=== PATIENT | female | born 1990 | race American Indian/Alaskan Native ===

== ENCOUNTER 2016-11-15 22:37 | Emergency (ER) | payer OTHER ==
[2016-11-15 22:54] VITALS: BP 140/89
[2016-11-15 23:38] LABS: Basophils % (Auto) 0.8 % (0.0-1.8); Eosinophils % (Auto) 0.9 % (0.0-4.3); Hematocrit 31.8 % (30.3-42.9); Hemoglobin 10.5 gm/dl (10.1-14.3); Mean Corpuscular HGB Conc 33 % (30-34); Mean Corpuscular Hemoglobin 28 pg (28-32); Mean Corpuscular Volume 85 fl (79-97); Platelet Count 371 K/mm3 (140-440); Red Blood Count 3.75 M/mm3 (3.65-5.03); Red Cell Distribution Width 15.9 % (13.2-15.2); White Blood Count 7.8 K/mm3 (4.5-11.0)
[2016-11-15 23:46] LABS: BUN/Creatinine Ratio 15.71; Blood Urea Nitrogen 11 mg/dL (7-17); Calcium 8.5 mg/dL (8.4-10.2); Carbon Dioxide 25 mmol/L (22-30); Chloride 101.4 mmol/L (98-107); Glucose 88 mg/dL (65-100); Potassium 3.8 mmol/L (3.6-5.0); Sodium 138 mmol/L (137-145)
[2016-11-15 23:53] LABS: Bilirubin,Urine NEG (Negative); Blood,Urine NEG (Negative); Ketones,Urine NEG (Negative); Leukocyte Esterase,Urine NEG (Negative); Mucus,Urine FEW /HPF; Nitrite,Urine NEG (Negative); Protein,Urine <15 mg/dL mg/dL (Negative); Urobilinogen,Urine < 2.0 mg/dL (<2.0); WBC,Urine < 1.0 /HPF (0.0-6.0)
[2016-11-15 23:56] LABS: Anion Gap 15 mmol/L
[2016-11-16] MEDS ORDERED: TYLENOL PO ONE (02:21)
== END 2016-11-16 03:55 | disposition left against medical advice (07) ==
LOC: ED 22:37
DX: R07.81 Pleurodynia (principal); Z53.21 Procedure and treatment not carried out due to patient leaving prior to being seen by health care provider
CPT/HCPCS: 36415; 80048; 81001; 81025; 84484; 85025; 93005; 93010

== ENCOUNTER 2017-04-10 21:34 | Emergency (ER) | payer OTHER ==
[2017-04-10 21:42] VITALS: BP 141/82
[2017-04-11] MEDS ORDERED: FLEXERIL PO ONE (00:15)
[2017-04-11] MEDS ORDERED: TORADOL IM ONE (00:16)
--- NOTE | 2017-04-11 00:18 | Emergency Department Report ---
HPI - General Chief Complaint: Extremity Injury, Lower Time Seen by Provider: 04/11/17 00:08 - HPI HPI: Patient is a 26-year-old female presents to ED complaining of right lower leg pain 1 day. Patient states she was getting out of her car earlier today when she accidentally slammed the door on her lower leg. She states shortly after that she started experiencing some lower leg cramp. PT feeling on anterior aspect of her lower leg. She reports ankle injury 2 years ago and states injury is aggravating her pain. She denies fevers/chills/nausea/vomiting/dizziness and shortness of breath as chest pain or any other problems ED Past Medical Hx - Past Medical History Previous Medical History?: Yes Hx Hypertension: Yes - Surgical History Past Surgical History?: Yes Additional Surgical History: uterine polyps - Social History Smoking Status: Never Smoker Substance Use Type: Alcohol, Prescribed - Medications Home Medications: Home Medications Medication Instructions Recorded Confirmed Last Taken Type HYDROcodone/APAP 5-325 [[place] 1 each PO Q6HR PRN #10 tablet 01/05/16 Unknown Rx 5/325] Cyclobenzaprine [Flexeril 10 MG 10 mg PO QHS #20 tablet 04/11/17 Unknown Rx TAB] Naproxen [Naprosyn] 500 mg PO BID #30 tablet 04/11/17 Unknown Rx ED Review of Systems ROS: Stated complaint: RT LEG INJURY Other details as noted in HPI Constitutional: denies: chills, fever Eyes: denies: eye pain, eye discharge, vision change ENT: denies: ear pain, throat pain Respiratory: denies: cough, shortness of breath, wheezing Cardiovascular: denies: chest pain, palpitations Endocrine: no symptoms reported Gastrointestinal: denies: abdominal pain, nausea, diarrhea Genitourinary: denies: urgency, dysuria, discharge Musculoskeletal: myalgia. denies: back pain, joint swelling, arthralgia Skin: denies: rash, lesions Neurological: denies: headache, weakness, paresthesias Psychiatric: denies: anxiety, depression Hematological/Lymphatic: denies: easy bleeding, easy bruising Physical Exam - Physical Exam Vital Signs: Vital Signs 04/10/17 21:38 Temperature 98.3 F Pulse Rate 68 Respiratory 18 Rate Blood Pressure 141/82 Blood Pressure 141/83 [Right] O2 Sat by Pulse 100 Oximetry Physical Exam: GENERAL: Alert and oriented x3, no apparent distress, Normal Gait, atraumatic. HEAD: Head is normocephalic and a-traumatic. NECK: Supple. Non edematous, No carotid bruits. No lymphadenopathy or thyromegaly. No C-spine tenderness LUNGS: Symetrical with respiration, No wheezing, no rales or crackles, CTAB. HEART: S1, S2 present, regular rate and rhythm without murmur, no rubs, no gallops. Non tender to palpation ischarge. EXTREMITIES/MUSCULOSKELETAL: No cyanosis, clubbing, rash, lesions or edema. Full ROM bilaterally. UE/LE Pulses 2+ bilaterally. LE and UE 5+ strength bilaterally, straight leg raise negative bilaterally. No calf tenderness. Homans sign negative. Right hickman tender to palpation. Ankle joints are intact knee joints are intact. Mild ecchymosis right lower hickman NEUROLOGIC: The patient is cooperative with no focal neurologic deficits. Cranial nerves II through XII are grossly intact. Normal speech. SKIN: Warm and dry, No lesions, No ulceration or induration present. ED Course Vital Signs 04/10/17 21:38 Temperature 98.3 F Pulse Rate 68 Respiratory 18 Rate Blood Pressure 141/82 Blood Pressure 141/83 [Right] O2 Sat by Pulse 100 Oximetry ED Medical Decision Making - Medical Decision Making 26-year-old female presents with nausea secondary to injury ED course: Patient received Toradol and Flexeril in ED. Discussed the patient to follow up with primary care physician. Discussed breast heat therapy application to hickman Vital signs are normal patient is in no acute distress. Stress test was normal, no fractures or dislocation normal sinus Discussed this finding this patient. Patient is alert and oriented 3 showed understanding of instructions given. Critical care attestation.: If time is entered above; I have spent that time in minutes in the direct care of this critically ill patient, excluding procedure time. ED Disposition Clinical Impression: Injury of right hickman Qualifiers: Encounter type: initial encounter Qualified Code(s): S89.91XA - Unspecified injury of right lower leg, initial encounter Disposition: TO HOME OR SELFCARE Is pt being admited?: No Does the pt Need Aspirin: No Condition: Stable Instructions: Musculoskeletal Pain (ED), Trigger Point Pain (ED) Prescriptions: Cyclobenzaprine [Flexeril 10 MG TAB] 10 mg PO QHS #20 tablet Naproxen [Naprosyn] 500 mg PO BID #30 tablet Referrals: PRIMARY CARE, [Primary Care Provider] - 3-5 Days [facility] [Outside] - 3-5 Days [facility] [Outside] - 3-5 Days Forms: Accompanied Note, Work/School Release Form Time of Disposition: 00:36
--- NOTE | 2017-04-11 00:21 | XRay Report ---
FINAL REPORT EXAM: XR TIBIA FIBULA 2V RT HISTORY: unable to bear weight; right leg pain COMPARISON: None available. FINDINGS: AP and lateral views of right tibia and fibula obtained. Bony structures are intact. Joint spaces are preserved. No acute fracture dislocation. IMPRESSION: No acute bony abnormality.
== END 2017-04-11 00:58 | disposition home or self-care (01) ==
LOC: ED 21:34
DX: S80.11XA Contusion of right lower leg, initial encounter (principal); I10 Essential (primary) hypertension; W22.8XXA Striking against or struck by other objects, initial encounter; Y93.89 Activity, other specified; Y92.89 Other specified places as the place of occurrence of the external cause; Y99.8 Other external cause status
CPT/HCPCS: 73590; 96372; 99283; J1885

== ENCOUNTER 2018-03-30 04:34 | Emergency (ER) | payer OTHER ==
[2018-03-30 05:58] LABS: Bilirubin,Urine NEG (Negative); Blood,Urine NEG (Negative); Color,Urine Straw (Yellow); Protein,Urine <15 mg/dL mg/dL (Negative); Urobilinogen,Urine < 2.0 mg/dL (<2.0); WBC,Urine < 1.0 /HPF (0.0-6.0)
[2018-03-30 06:02] LABS: Basophils % (Auto) 0.5 % (0.0-1.8); Eosinophils % (Auto) 0.4 % (0.0-4.3); Hematocrit 36.1 % (30.3-42.9); Hemoglobin 11.6 gm/dl (10.1-14.3); Lymphocytes % (Auto) 16.8 % (13.4-35.0); Mean Corpuscular HGB Conc 32 % (30-34); Mean Corpuscular Hemoglobin 26 pg (28-32); Mean Corpuscular Volume 81 fl (79-97); Monocytes # (Auto) 0.4 K/mm3 (0.0-0.8); Monocytes % (Auto) 6.6 % (0.0-7.3); Platelet Count 328 K/mm3 (140-440); Red Blood Count 4.46 M/mm3 (3.65-5.03); Red Cell Distribution Width 17.2 % (13.2-15.2)
[2018-03-30 06:11] LABS: HCG Qualitative,Urine Negative (Negative)
[2018-03-30 06:14] LABS: Alanine Aminotransferase 13 units/L (7-56); Albumin 4.6 g/dL (3.9-5); BUN/Creatinine Ratio 13; Blood Urea Nitrogen 12 mg/dL (7-17); Calcium 8.3 mg/dL (8.4-10.2); Hemolysis Index 0
[2018-03-30] MEDS ORDERED: DILAUDID IV ONE (08:27)
[2018-03-30] MEDS ORDERED: NACL 0.9% 1000 ML 2,000 ML IV ONE (08:27)
[2018-03-30] MEDS ORDERED: REGLAN IV ONE (08:28)
--- NOTE | 2018-03-30 08:28 | Emergency Department Report ---
ED General Adult HPI - General Chief complaint: Abdominal Pain Stated complaint: SYNCOPAL EPISODE Time Seen by Provider: 03/30/18 08:16 Source: patient, RN notes reviewed Mode of arrival: Stretcher Limitations: No Limitations - History of Present Illness Initial comments: This is a 27-year-old female, known to this provider previously. Her primary care doctor is Dr. Soria Patient presents to the ER with a complaint of left leg pain, intermittent sensation of her left leg during her, right upper quadrant abdominal pain that radiates down to the bilateral lower quadrants, syncope 1, lightheadedness, headache, nausea, shortness of breath. She also has a history of hypertension. She reports that she passed out at 3:00 this morning after urinating. The episode of loss of consciousness did not happen while urinating but afterwards. Her abdominal pain has no exacerbating or relieving factors. She denies DVT, pulmonary embolus risk factors. -: Gradual Location: head, abdomen, left, lower extremity Radiation: abdomen Severity scale (0 -10): 8 Quality: aching Consistency: constant Improves with: rest Worsens with: movement Associated Symptoms: headaches, loss of appetite, malaise, nausea/vomiting, shortness of breath, syncope, weakness. denies: confusion, chest pain, cough, diaphoresis, fever/chills, rash - Related Data Previous Rx's Medication Instructions Recorded Last Taken Type HYDROcodone/APAP 5-325 [[place] 1 each PO Q6HR PRN #10 tablet 01/05/16 Unknown Rx 5/325] Cyclobenzaprine [Flexeril 10 MG 10 mg PO QHS #20 tablet 04/11/17 Unknown Rx TAB] Naproxen [Naprosyn] 500 mg PO BID #30 tablet 04/11/17 Unknown Rx Acetaminophen [Tylenol Arthritis] 650 mg PO Q6HR PRN #30 tablet.er 03/30/18 Unknown Rx Famotidine [Pepcid] 20 mg PO BID #30 tablet 03/30/18 Unknown Rx Ondansetron [Zofran Odt] 4 mg PO Q8HR PRN #20 tab.rapdis 03/30/18 Unknown Rx Allergies Allergy/AdvReac Type Severity Reaction Status Date / Time No Known Allergies Allergy Verified 01/05/16 03:09 ED Review of Systems ROS: Stated complaint: SYNCOPAL EPISODE Other details as noted in HPI Constitutional: malaise. denies: fever Eyes: denies: vision change ENT: denies: epistaxis Respiratory: shortness of breath Cardiovascular: syncope. denies: chest pain Gastrointestinal: abdominal pain Genitourinary: denies: dysuria Musculoskeletal: arthralgia, myalgia Neurological: weakness Psychiatric: anxiety ED Past Medical Hx - Past Medical History Previous Medical History?: Yes Hx Hypertension: Yes - Surgical History Past Surgical History?: Yes Additional Surgical History: uterine polyps - Social History Smoking Status: Current Some Day Smoker - Medications Home Medications: Home Medications Medication Instructions Recorded Confirmed Last Taken Type HYDROcodone/APAP 5-325 [Michael 1 each PO Q6HR PRN #10 tablet 01/05/16 Unknown Rx 5/325] Cyclobenzaprine [Flexeril 10 MG 10 mg PO QHS #20 tablet 04/11/17 Unknown Rx TAB] Naproxen [Naprosyn] 500 mg PO BID #30 tablet 04/11/17 Unknown Rx Acetaminophen [Tylenol Arthritis] 650 mg PO Q6HR PRN #30 tablet.er 03/30/18 Unknown Rx Famotidine [Pepcid] 20 mg PO BID #30 tablet 03/30/18 Unknown Rx Ondansetron [Zofran Odt] 4 mg PO Q8HR PRN #20 tab.rapdis 03/30/18 Unknown Rx ED Physical Exam - General Limitations: No Limitations General appearance: alert, in distress, obese - Head Head exam: Present: atraumatic, normocephalic - Eye Eye exam: Present: normal appearance, PERRL, EOMI, other (visual acuity intact to finger counting, color perception, reading at a close distance). Absent: nystagmus - ENT ENT exam: Present: normal exam, normal orophraynx, mucous membranes moist, normal external ear exam - Neck Neck exam: Present: normal inspection, full ROM. Absent: tenderness, meningismus - Respiratory Respiratory exam: Present: normal lung sounds bilaterally. Absent: respiratory distress - Cardiovascular Cardiovascular Exam: Present: regular rate, normal rhythm, normal heart sounds. Absent: bradycardia, tachycardia, irregular rhythm, systolic murmur, diastolic murmur, rubs, gallop - GI/Abdominal GI/Abdominal exam: Present: soft, normal bowel sounds. Absent: distended, tenderness, guarding, rebound, rigid, pulsatile mass - Extremities Exam Extremities exam: Present: normal inspection, full ROM, tenderness (left medial thigh, left calf Tender.), normal capillary refill. Absent: pedal edema, joint swelling, calf tenderness - Back Exam Back exam: Present: normal inspection, full ROM. Absent: tenderness, CVA tenderness (R), paraspinal tenderness, vertebral tenderness - Neurological Exam Neurological exam: Present: alert, oriented X3, CN II-XII intact, other ( Extraocular movements intact. Tongue midline. No facial droop. Facial sensation intact to light touch in the V1, V2, V3 distribution bilaterally. 5 and 5 strength in 4 extremities.. Sensation is intact to light touch in 4 extremities.). Absent: motor sensory deficit - Psychiatric Psychiatric exam: Present: anxious - Skin Skin exam: Present: warm, dry, intact, normal color. Absent: rash ED Course Vital Signs 03/30/18 03/30/18 03/30/18 05:04 05:16 05:22 Temperature 98.1 F Pulse Rate 90 78 66 Respiratory 26 H 20 Rate Blood Pressure 140/82 140/82 Blood Pressure 140/82 [Right] O2 Sat by Pulse 100 98 Oximetry 03/30/18 03/30/18 03/30/18 05:29 05:30 05:46 Temperature Pulse Rate 88 80 Respiratory 18 18 15 Rate Blood Pressure 136/81 101/66 Blood Pressure [Right] O2 Sat by Pulse 100 100 Oximetry 03/30/18 03/30/18 03/30/18 06:00 06:16 06:30 Temperature Pulse Rate 110 H 84 81 Respiratory 16 7 L 19 Rate Blood Pressure 101/66 101/66 124/67 Blood Pressure [Right] O2 Sat by Pulse 89 100 100 Oximetry 03/30/18 03/30/18 03/30/18 06:46 07:00 07:16 Temperature Pulse Rate 83 89 84 Respiratory 18 15 16 Rate Blood Pressure 124/67 107/68 107/68 Blood Pressure [Right] O2 Sat by Pulse 100 100 100 Oximetry 03/30/18 03/30/18 03/30/18 07:30 07:46 08:00 Temperature Pulse Rate 85 92 H 82 Respiratory 19 17 16 Rate Blood Pressure 111/68 86/40 111/66 Blood Pressure [Right] O2 Sat by Pulse 100 100 100 Oximetry 03/30/18 03/30/18 03/30/18 08:16 08:30 08:46 Temperature Pulse Rate 87 90 88 Respiratory 15 16 17 Rate Blood Pressure 111/66 111/66 112/78 Blood Pressure [Right] O2 Sat by Pulse Oximetry 03/30/18 03/30/18 03/30/18 09:01 09:20 09:30 Temperature Pulse Rate 81 Respiratory 14 Rate Blood Pressure 155/60 109/55 Blood Pressure [Right] O2 Sat by Pulse 100 Oximetry 03/30/18 03/30/18 03/30/18 11:14 11:15 11:30 Temperature Pulse Rate 80 78 100 H Respiratory 23 24 25 H Rate Blood Pressure 108/62 108/62 113/67 Blood Pressure [Right] O2 Sat by Pulse 85 100 Oximetry 03/30/18 03/30/18 03/30/18 11:46 12:00 12:16 Temperature Pulse Rate 77 84 99 H Respiratory 23 19 18 Rate Blood Pressure 113/66 116/68 116/68 Blood Pressure [Right] O2 Sat by Pulse 100 100 100 Oximetry 03/30/18 03/30/18 03/30/18 12:30 12:46 13:00 Temperature Pulse Rate 77 94 H 84 Respiratory 19 16 14 Rate Blood Pressure 121/74 116/68 116/68 Blood Pressure [Right] O2 Sat by Pulse 100 Oximetry 03/30/18 03/30/18 13:16 13:30 Temperature Pulse Rate 103 H 92 H Respiratory 21 21 Rate Blood Pressure 129/60 129/60 Blood Pressure [Right] O2 Sat by Pulse 100 Oximetry - Reevaluation(s) Reevaluation #1: 03/30/18 10:37 Differential diagnosis, including but not limited to: Orthostasis, vagal event, structural cardiac disease, arrhythmia, intra-abdominal infection, pulmonary embolus, migraine headache, tension headache, cluster headache, DVT Assessment and plan: 27-year-old female with a primary complaint of syncope, multiple secondary complaints, including abdominal pain, left leg pain, headache , shortness of breath. No pulmonary embolus or DVT risk factors, low risk by well's criteria. Also found to be very orthostatic by numbers. GCS of 15, NIH score of 0, no abdominal tenderness. Patient's symptoms will be treated with IV fluids, nausea medicine, and with IV lidocaine for pain. CT scan of the brain, chest, abdomen, pelvis pending. Objective laboratory studies unremarkable, EKG also unremarkable. Reevaluation #2: 03/30/18 14:11 Repeat neurologic examination unremarkable and unchanged. CT scan of the brain is negative. CT scan of the abdomen and pelvis negative. CT scan of the chest grossly negative. Negative DVT study. No pulmonary embolus or DVT risk factors , low risk by well's criteria. Patient has not had an episode of syncope in the 10 hours that she has been in the emergency department. CT scan limitations of the tests are reviewed and appreciated, however based on the objective data, I think it is very unlikely at this point that the patient has a large symptomatically pulmonary embolus. The patient can follow up with outpatient cardiology for clearance to return to operate motor vehicles. ED Medical Decision Making - Lab Data Result diagrams: 03/30/18 05:41 03/30/18 05:41 Vital Signs 03/30/18 03/30/18 03/30/18 05:04 05:16 05:22 Temperature 98.1 F Pulse Rate 90 78 66 Respiratory 26 H 20 Rate Blood Pressure 140/82 140/82 Blood Pressure 140/82 [Right] O2 Sat by Pulse 100 98 Oximetry 03/30/18 03/30/18 03/30/18 05:29 05:30 05:46 Temperature Pulse Rate 88 80 Respiratory 18 18 15 Rate Blood Pressure 136/81 101/66 Blood Pressure [Right] O2 Sat by Pulse 100 100 Oximetry 03/30/18 03/30/18 03/30/18 06:00 06:16 06:30 Temperature Pulse Rate 110 H 84 81 Respiratory 16 7 L 19 Rate Blood Pressure 101/66 101/66 124/67 Blood Pressure [Right] O2 Sat by Pulse 89 100 100 Oximetry Lab Results 03/30/18 03/30/18 03/30/18 Range/Units 05:29 05:41 05:41 WBC 6.0 (4.5-11.0) K/mm3 RBC 4.46 (3.65-5.03) M/mm3 Hgb 11.6 (10.1-14.3) gm/dl Hct 36.1 (30.3-42.9) % MCV 81 (79-97) fl MCH 26 L (28-32) pg MCHC 32 (30-34) % RDW 17.2 H (13.2-15.2) % Plt Count 328 (140-440) K/mm3 Lymph % (Auto) 16.8 (13.4-35.0) % [place] % (Auto) 6.6 (0.0-7.3) % Eos % (Auto) 0.4 (0.0-4.3) % Baso % (Auto) 0.5 (0.0-1.8) % Lymph # 1.0 L (1.2-5.4) K/mm3 [place] # 0.4 (0.0-0.8) K/mm3 Eos # 0.0 (0.0-0.4) K/mm3 Baso # 0.0 (0.0-0.1) K/mm3 Seg Neutrophils % 75.7 H (40.0-70.0) % Seg Neutrophils # 4.6 (1.8-7.7) K/mm3 Sodium 136 L (137-145) mmol/L Potassium 4.1 (3.6-5.0) mmol/L Chloride 95.2 L (98-107) mmol/L Carbon Dioxide 29 (22-30) mmol/L Anion Gap 16 mmol/L BUN 12 (7-17) mg/dL Creatinine 0.9 (0.7-1.2) mg/dL Estimated GFR > 60 ml/min BUN/Creatinine Ratio 13 % Glucose 131 H (65-100) mg/dL Calcium 8.3 L (8.4-10.2) mg/dL Magnesium (1.7-2.3) mg/dL Total Bilirubin 0.20 (0.1-1.2) mg/dL AST 16 (5-40) units/L ALT 13 (7-56) units/L Alkaline Phosphatase 67 (35-129) units/L Troponin T (0.00-0.029) ng/mL Total Protein 7.6 (6.3-8.2) g/dL Albumin 4.6 (3.9-5) g/dL Albumin/Globulin Ratio 1.5 % TSH (0.270-4.200) mlU/mL Urine Color Straw (Yellow) Urine Turbidity Clear (Clear) Urine pH 6.0 (5.0-7.0) Ur Specific [place] 1.006 (1.003-1.030) Urine Protein <15 mg/dl (Negative) mg/dL Urine Glucose (UA) Neg (Negative) mg/dL Urine Ketones Neg (Negative) mg/dL Urine Blood Neg (Negative) Urine Nitrite Neg (Negative) Urine Bilirubin Neg (Negative) Urine Urobilinogen < 2.0 (<2.0) mg/dL Ur Leukocyte Esterase Neg (Negative) Urine WBC (Auto) < 1.0 (0.0-6.0) /HPF Urine RBC (Auto) 1.0 (0.0-6.0) /HPF Urine HCG, Qual Negative (Negative) 03/30/18 03/30/18 03/30/18 Range/Units 08:35 08:35 08:35 WBC (4.5-11.0) K/mm3 RBC (3.65-5.03) M/mm3 Hgb (10.1-14.3) gm/dl Hct (30.3-42.9) % MCV (79-97) fl MCH (28-32) pg MCHC (30-34) % RDW (13.2-15.2) % Plt Count (140-440) K/mm3 Lymph % (Auto) (13.4-35.0) % [place] % (Auto) (0.0-7.3) % Eos % (Auto) (0.0-4.3) % Baso % (Auto) (0.0-1.8) % Lymph # (1.2-5.4) K/mm3 [place] # (0.0-0.8) K/mm3 Eos # (0.0-0.4) K/mm3 Baso # (0.0-0.1) K/mm3 Seg Neutrophils % (40.0-70.0) % Seg Neutrophils # (1.8-7.7) K/mm3 Sodium (137-145) mmol/L Potassium (3.6-5.0) mmol/L Chloride (98-107) mmol/L Carbon Dioxide (22-30) mmol/L Anion Gap mmol/L BUN (7-17) mg/dL Creatinine (0.7-1.2) mg/dL Estimated GFR ml/min BUN/Creatinine Ratio % Glucose (65-100) mg/dL Calcium (8.4-10.2) mg/dL Magnesium 1.80 (1.7-2.3) mg/dL Total Bilirubin (0.1-1.2) mg/dL AST (5-40) units/L ALT (7-56) units/L Alkaline Phosphatase (35-129) units/L Troponin T < 0.010 (0.00-0.029) ng/mL Total Protein (6.3-8.2) g/dL Albumin (3.9-5) g/dL Albumin/Globulin Ratio % TSH 1.160 (0.270-4.200) mlU/mL Urine Color (Yellow) Urine Turbidity (Clear) Urine pH (5.0-7.0) Ur Specific [place] (1.003-1.030) Urine Protein (Negative) mg/dL Urine Glucose (UA) (Negative) mg/dL Urine Ketones (Negative) mg/dL Urine Blood (Negative) Urine Nitrite (Negative) Urine Bilirubin (Negative) Urine Urobilinogen (<2.0) mg/dL Ur Leukocyte Esterase (Negative) Urine WBC (Auto) (0.0-6.0) /HPF Urine RBC (Auto) (0.0-6.0) /HPF Urine HCG, Qual (Negative) - EKG Data -: EKG Interpreted by Tn - EKG Data 03/30/18 12:13 EKG #1 shows normal sinus, 90 beats minute, normal axis, normal intervals, nondistended, EKG #2 was unchanged, juvenile T-wave inversion noted in V2 V3. - Radiology Data Radiology results: pending, report reviewed, image reviewed [facility] : 1990 MedRec# [id number] 03/30/18 10:37 - Radiology Dept. Note by STEW LONDON [facility] Num: [id number] : 1990 Patient Age: 27 BLE VENOUS DUPLEX COMPLETED. VAS LAB PRELIMINARY REPORT; NO EVIDENCE OF DVT/SVT NOTED IN VESSELS/SEGMENTS EXAMINED, BLE. PHYSICIANS REPORT TO FOLLOW...(RSK) Initialized on 03/30/18 10:37 - END OF NOTE Critical care attestation.: If time is entered above; I have spent that time in minutes in the direct care of this critically ill patient, excluding procedure time. ED Disposition Clinical Impression: Syncope, Leg pain, Abdominal pain Disposition: DC-01 TO HOME OR SELFCARE Is pt being admited?: No Does the pt Need Aspirin: No Condition: Stable Instructions: Abdominal Pain (ED), Syncope (ED) Additional Instructions: Take pain medication, nausea medication as needed/directed. Do not drive or operate motor vehicles for the next 6 months. Follow up with either her primary care doctor or cardiology as listed within the next week for clearance or operate motor vehicles. Return to the ER right away with new pain, worsened pain, migration of pain, fevers, chills, lethargy, irritability, projectile vomiting, change in mental status, confusion, inability to tolerate liquid feeds. Referrals: PRIMARY CARE, [Primary Care Provider] - 3-5 Days [facility] [Provider Group] - 3-5 Days [facility] [Provider Group] - 3-5 Days [facility] [Provider Group] - 3-5 Days
[2018-03-30] MEDS ORDERED: XYLOCAINE CARDIAC IV ONE (09:44)
[2018-03-30] MEDS ORDERED: NACL 0.9% IV SCH (11:00)
[2018-03-30] MEDS ORDERED: XYLOCAINE CARDIAC IV SCH (11:00)
--- NOTE | 2018-03-30 11:15 | Cat Scan Report ---
CT HEAD WITHOUT CONTRAST INDICATION: Headache. Nausea and vomiting. COMPARISON: None similar. FINDINGS: Noncontrast head CT demonstrates normal, symmetric ventricles and sulci without acute or recent infarct, hemorrhage, mass effect or midline shift. No abnormal extra-axial fluid collections. Posterior fossa structures and basilar cisterns appear within normal limits. Symmetric eye globes. Aerated paranasal sinuses and mastoid air cells clear. Intact calvarium. Normal overlying scalp soft tissues. Few radiopaque dental material incidentally noted. CONCLUSION: No acute intracranial CT abnormality, as described. Thank you for the opportunity to participate in this patient's care.
--- NOTE | 2018-03-30 11:44 | Cat Scan Report ---
CTA CHEST CT ABDOMEN AND PELVIS WITH CONTRAST INDICATION: Dyspnea, syncope. Abdominal pain. Nausea, vomiting. COMPARISON: None similar. FINDINGS: Chest CTA as also abdomen and pelvis CT performed following intravenous administration of 100 cc of Omnipaque 300. Axial, sagittal, coronal and MIP reconstructions obtained. CHEST: Top normal heart size. No effusions or size significant adenopathy. No aortic aneurysm or dissection. Pulmonary arterial opacification suboptimal, though without gross central filling defects, to the extent assessed. Unremarkable thyroid. Clear lungs. Mild nonspecific distal esophageal wall prominence/thickening, not excluded for gastroesophageal reflux and/or hiatal hernia, amongst others. Right hemidiaphragm approximately 2 cm higher than the left. Inspiration suboptimal. ABDOMEN: Liver, spleen, gallbladder, pancreas, adrenals, aorta, IVC and kidneys within normal limits. No ascites or size significant adenopathy. Nonopacified GI tract evaluation limited, though grossly nonobstructive. A normal retrocecal appendix. Usual colonic stool. Tiny fat containing umbilical hernia. PELVIS: Uterus, adnexa/ovaries and the urinary bladder grossly within normal CT appearance. Approximately 2 cm right ovarian follicular cyst may be present. Rectosigmoid stool. No free fluid or significant adenopathy. Slight lower thoracic spine degenerative spurring. CONCLUSION: 1. Suboptimal pulmonary arterial opacification and assessment for pulmonary embolism, as described. 2. No other acute CT abnormality with few incidental findings, as above. Thank you for the opportunity to participate in this patient's care.
[2018-03-30] MEDS ORDERED: TORADOL IV ONE (12:14)
[2018-03-30 13:50] VITALS: BP 129/60
[2018-03-30 23:21] LABS: Amphetamine Screen,Urine PRESUMPTIVE NEGATIVE; Benzodiazepines Screen,Urine PRESUMPTIVE NEGATIVE; Cannabinoid Screen,Urine PRESUMPTIVE NEGATIVE; Cocaine Screen,Urine PRESUMPTIVE NEGATIVE; Methadone Screen,Urine PRESUMPTIVE NEGATIVE; Opiate Screen,Urine PRESUMPTIVE NEGATIVE
== END 2018-03-30 16:10 | disposition home or self-care (01) ==
LOC: ED 04:34
DX: R55 Syncope and collapse (principal); M79.605 Pain in left leg; R51 Headache; R10.9 Unspecified abdominal pain; R06.02 Shortness of breath; R11.2 Nausea with vomiting, unspecified; I10 Essential (primary) hypertension; F17.200 Nicotine dependence, unspecified, uncomplicated
CPT/HCPCS: 36415; 70450; 71275; 74177; 80053; 80307; 81001; 81025; 83735; 84443; 84484; 85025; 93005; 93010; 93970; 96361; 96374; 96375; 99285; J1885; J2001; J2765; J7030; Q9967; J1170

== ENCOUNTER 2018-04-10 16:44 | Outpatient (CLI) | payer OTHER ==
--- NOTE | 2018-04-11 07:30 | Magnetic Resonance Report ---
MR LOWER EXTREMITY NON-JOINT LEFT WITHOUT CONTRAST History: Pain in leg. Technique: Multisequence, multiplanar MRI without contrast was performed from the left knee to the left ankle. Comparison: None. Findings: There is mild nonspecific subcutaneous edema in the posterior subcutaneous tissues. No evidence for mass or fluid collection on noncontrast MR. There is normal bone marrow signal in the visualized tibia and fibula. No evidence for fracture, bone lesion or periostitis. The musculotendinous structures are unremarkable. IMPRESSION: Nonspecific subcutaneous edema in the posterior soft tissues which could represent a cellulitis or traumatic injury.
== END 2018-04-10 16:45 | disposition home or self-care (01) ==
LOC: MRI 16:44
PROVIDERS: ATTEND Podiatrist Foot & Ankle Surgery
DX: M79.605 Pain in left leg (principal); R60.0 Localized edema; D49.2 Neoplasm of unspecified behavior of bone, soft tissue, and skin; F17.210 Nicotine dependence, cigarettes, uncomplicated; I10 Essential (primary) hypertension

== ENCOUNTER 2018-07-09 09:27 | Emergency (ER) | payer OTHER ==
--- NOTE | 2018-07-09 10:13 | Emergency Department Report ---
- General Chief complaint: Weakness Stated complaint: HIGH B/P Time Seen by Provider: 07/09/18 10:07 Source: patient Mode of arrival: Ambulatory Limitations: No Limitations - History of Present Illness Initial comments: Ms. Osorio is 28 yo female who just feels "under the weather". Fatigue since last night. Denies pain. Hx of asthma. Complaint: generalized weakness -: Gradual, Last night Location: generalized Severity: mild Improves with: none Worsens with: none - Related Data Previous Rx's Medication Instructions Recorded Last Taken Type HYDROcodone/APAP 5-325 [[place] 1 each PO Q6HR PRN #10 tablet 01/05/16 Unknown Rx 5/325] Cyclobenzaprine [Flexeril 10 MG 10 mg PO QHS #20 tablet 04/11/17 Unknown Rx TAB] Naproxen [Naprosyn] 500 mg PO BID #30 tablet 04/11/17 Unknown Rx Acetaminophen [Tylenol Arthritis] 650 mg PO Q6HR PRN #30 tablet.er 03/30/18 Unknown Rx Famotidine [Pepcid] 20 mg PO BID #30 tablet 03/30/18 Unknown Rx Ondansetron [Zofran Odt] 4 mg PO Q8HR PRN #20 tab.rapdis 03/30/18 Unknown Rx Allergies Allergy/AdvReac Type Severity Reaction Status Date / Time No Known Allergies Allergy Verified 01/05/16 03:09 ED Review of Systems ROS: Stated complaint: HIGH B/P Other details as noted in HPI Comment: All other systems reviewed and negative Constitutional: malaise Respiratory: denies: cough Cardiovascular: denies: chest pain Neurological: headache (mild nondescript headache) ED Past Medical Hx - Past Medical History Hx Hypertension: No Hx Asthma: Yes - Surgical History Past Surgical History?: Yes Additional Surgical History: uterine polyps - Social History Smoking Status: Never Smoker Substance Use Type: None - Medications Home Medications: Home Medications Medication Instructions Recorded Confirmed Last Taken Type HYDROcodone/APAP 5-325 [[place] 1 each PO Q6HR PRN #10 tablet 01/05/16 Unknown Rx 5/325] Cyclobenzaprine [Flexeril 10 MG 10 mg PO QHS #20 tablet 04/11/17 Unknown Rx TAB] Naproxen [Naprosyn] 500 mg PO BID #30 tablet 04/11/17 Unknown Rx Acetaminophen [Tylenol Arthritis] 650 mg PO Q6HR PRN #30 tablet.er 03/30/18 Unknown Rx Famotidine [Pepcid] 20 mg PO BID #30 tablet 03/30/18 Unknown Rx Ondansetron [Zofran Odt] 4 mg PO Q8HR PRN #20 tab.rapdis 03/30/18 Unknown Rx ED Physical Exam - General Limitations: No Limitations General appearance: alert, in no apparent distress - Head Head exam: Present: atraumatic, normocephalic - Eye Eye exam: Present: normal appearance - ENT ENT exam: Present: mucous membranes moist - Neck Neck exam: Present: normal inspection. Absent: tenderness, meningismus - Respiratory Respiratory exam: Present: normal lung sounds bilaterally. Absent: respiratory distress, wheezes, rales, rhonchi - Cardiovascular Cardiovascular Exam: Present: regular rate, normal rhythm, normal heart sounds. Absent: systolic murmur, diastolic murmur, rubs, gallop - GI/Abdominal GI/Abdominal exam: Present: soft, normal bowel sounds. Absent: distended, tenderness, guarding, rebound - Extremities Exam Extremities exam: Present: normal inspection - Back Exam Back exam: Present: normal inspection - Neurological Exam Neurological exam: Present: alert, oriented X3 - Psychiatric Psychiatric exam: Present: normal affect, normal mood - Skin Skin exam: Present: warm, dry, intact, normal color. Absent: rash ED Course Vital Signs 07/09/18 09:39 Temperature 98.0 F Pulse Rate 91 H Respiratory 16 Rate Blood Pressure 133/82 O2 Sat by Pulse 100 Oximetry ED Medical Decision Making - Medical Decision Making Dina is a 28 yo female who feels "under the weather". Suspect fatigue vs early viral syndrome. Given return precautions and supportive care instructions. dc'd home Critical care attestation.: If time is entered above; I have spent that time in minutes in the direct care of this critically ill patient, excluding procedure time. ED Disposition Clinical Impression: Fatigue, Generalized weakness Disposition: DC-01 TO HOME OR SELFCARE Is pt being admited?: No Does the pt Need Aspirin: No Condition: Stable Instructions: Weakness (ED) Forms: Work/School Release Form(ED)
[2018-07-09 10:16] LABS: HCG Qualitative,Urine Negative (Negative)
[2018-07-09 10:19] LABS: Bilirubin,Urine NEG (Negative); Blood,Urine NEG (Negative); Color,Urine Yellow (Yellow); Mucus,Urine FEW /HPF; Protein,Urine <15 mg/dL mg/dL (Negative); Urobilinogen,Urine < 2.0 mg/dL (<2.0)
[2018-07-09 11:12] VITALS: BP 141/90
== END 2018-07-09 11:11 | disposition home or self-care (01) ==
LOC: ED 09:27
DX: R53.83 Other fatigue (principal); R53.1 Weakness; J45.909 Unspecified asthma, uncomplicated
CPT/HCPCS: 81001; 81025; 99283

== ENCOUNTER 2019-07-17 07:03 | Emergency (ER) | payer OTHER ==
[2019-07-17 07:24] VITALS: BP 154/96
--- NOTE | 2019-07-17 08:07 | Emergency Department Report ---
Vomiting/Diarrhea - HPI Chief Complaint: Nausea/Vomiting/Diarrhea Stated Complaint: HEADACHE, VOMITING Time Seen by Provider: 07/17/19 07:46 Duration: Today Severity: mild Nausea/Vomiting Severity: Mild Diarrhea Severity: Mild Pain Severity: None Symptoms: Yes Able to Tolerate Fluids, No Watery Diarrhea, No Bloody diarrhea, No Fever, No Recent Unusual Foods, No Recent Untreated Water, No Recent use of Antibiotics, No Family w/ Similar Symptoms, No Contacts w/ Similar Symptoms, No Rash, No Hematuria, No Recent URI Symptoms Other History: 29 yo AA female comes to ER with concern that she is . LMP < 1 m ago. Pt has breast pain and nausea. ED Review of Systems ROS: Stated complaint: HEADACHE, VOMITING Other details as noted in HPI Comment: All other systems reviewed and negative ED Past Medical Hx - Past Medical History Hx Hypertension: No Hx Asthma: Yes - Surgical History Past Surgical History?: Yes Additional Surgical History: uterine polyps - Family History Family history: no significant - Social History Smoking Status: Never Smoker - Medications Home Medications: Home Medications Medication Instructions Recorded Confirmed Last Taken Type Ondansetron [Zofran Odt] 4 mg PO Q8HR PRN #10 tab.rapdis 07/17/19 Unknown Rx Vomiting Diarrhea Exam - Exam General: Vital signs noted. No distress. Alert and acting appropriately. HEENT: Yes Moist Mucous Membranes, No Pharyngeal Erythema, No Pharyngeal Exudates Neck: No Adenopathy Lungs: Yes Clear Lung Sounds, Yes Good Air Exchange Heart exam: Regular: Yes Abdomen: Tenderness: No, Peritoneal Signs: No, Distention: No, Hyperactive Bowel sounds: No Skin exam: Rash: No, Edema: No Neurologic: Alert and oriented, no deficits. Musculoskeletal: Unremarkable. ED Course Vital Signs 07/17/19 07:21 Temperature 98.7 F Pulse Rate 88 Respiratory 12 Rate Blood Pressure 154/96 [Right] O2 Sat by Pulse 100 Oximetry ED Medical Decision Making - Lab Data Result diagrams: 07/17/19 08:02 07/17/19 08:02 - Medical Decision Making Lab Results 07/17/19 07/17/19 07/17/19 Range/Units 08:02 08:02 08:10 WBC 6.0 (4.5-11.0) K/mm3 RBC 4.34 (3.65-5.03) M/mm3 Hgb 11.5 (10.1-14.3) gm/dl Hct 35.6 (30.3-42.9) % MCV 82 (79-97) fl MCH 26 L (28-32) pg MCHC 32 (30-34) % RDW 18.9 H (13.2-15.2) % Plt Count 361 (140-440) K/mm3 Lymph % (Auto) 29.4 (13.4-35.0) % [place] % (Auto) 6.7 (0.0-7.3) % Eos % (Auto) 0.7 (0.0-4.3) % Baso % (Auto) 0.6 (0.0-1.8) % Lymph # 1.8 (1.2-5.4) K/mm3 [place] # 0.4 (0.0-0.8) K/mm3 Eos # 0.0 (0.0-0.4) K/mm3 Baso # 0.0 (0.0-0.1) K/mm3 Seg Neutrophils % 62.6 (40.0-70.0) % Seg Neutrophils # 3.8 (1.8-7.7) K/mm3 Sodium 135 L (137-145) mmol/L Potassium 4.4 (3.6-5.0) mmol/L Chloride 99.9 (98-107) mmol/L Carbon Dioxide 23 (22-30) mmol/L Anion Gap 17 mmol/L BUN 8 (7-17) mg/dL Creatinine 0.7 (0.7-1.2) mg/dL Estimated GFR > 60 ml/min BUN/Creatinine Ratio 11 % Glucose 111 H (65-100) mg/dL Calcium 8.6 (8.4-10.2) mg/dL Total Bilirubin < 0.20 (0.1-1.2) mg/dL AST 15 (5-40) units/L ALT 13 (7-56) units/L Alkaline Phosphatase 69 (35-129) units/L Total Protein 7.2 (6.3-8.2) g/dL Albumin 3.9 (3.9-5) g/dL Albumin/Globulin Ratio 1.2 % Lipase 33 (13-60) units/L Urine Color (Yellow) Urine Turbidity (Clear) Urine pH (5.0-7.0) Ur Specific [place] (1.003-1.030) Urine Protein (Negative) mg/dL Urine Glucose (UA) (Negative) mg/dL Urine Ketones (Negative) mg/dL Urine Blood (Negative) Urine Nitrite (Negative) Urine Bilirubin (Negative) Urine Urobilinogen (<2.0) mg/dL Ur Leukocyte Esterase (Negative) Urine WBC (Auto) (0.0-6.0) /HPF Urine RBC (Auto) (0.0-6.0) /HPF U Epithel Cells (Auto) (0-13.0) /HPF Urine Bacteria (Auto) (Negative) /HPF Urine Mucus /HPF Urine HCG, Qual (Negative) 07/17/19 Range/Units 08:29 WBC (4.5-11.0) K/mm3 RBC (3.65-5.03) M/mm3 Hgb (10.1-14.3) gm/dl Hct (30.3-42.9) % MCV (79-97) fl MCH (28-32) pg MCHC (30-34) % RDW (13.2-15.2) % Plt Count (140-440) K/mm3 Lymph % (Auto) (13.4-35.0) % [place] % (Auto) (0.0-7.3) % Eos % (Auto) (0.0-4.3) % Baso % (Auto) (0.0-1.8) % Lymph # (1.2-5.4) K/mm3 [place] # (0.0-0.8) K/mm3 Eos # (0.0-0.4) K/mm3 Baso # (0.0-0.1) K/mm3 Seg Neutrophils % (40.0-70.0) % Seg Neutrophils # (1.8-7.7) K/mm3 Sodium (137-145) mmol/L Potassium (3.6-5.0) mmol/L Chloride (98-107) mmol/L Carbon Dioxide (22-30) mmol/L Anion Gap mmol/L BUN (7-17) mg/dL Creatinine (0.7-1.2) mg/dL Estimated GFR ml/min BUN/Creatinine Ratio % Glucose (65-100) mg/dL Calcium (8.4-10.2) mg/dL Total Bilirubin (0.1-1.2) mg/dL AST (5-40) units/L ALT (7-56) units/L Alkaline Phosphatase (35-129) units/L Total Protein (6.3-8.2) g/dL Albumin (3.9-5) g/dL Albumin/Globulin Ratio % Lipase (13-60) units/L Urine Color Yellow (Yellow) Urine Turbidity Slightly-cloudy (Clear) Urine pH 7.0 (5.0-7.0) Ur Specific [place] 1.016 (1.003-1.030) Urine Protein <15 mg/dl (Negative) mg/dL Urine Glucose (UA) Neg (Negative) mg/dL Urine Ketones Neg (Negative) mg/dL Urine Blood Neg (Negative) Urine Nitrite Neg (Negative) Urine Bilirubin Neg (Negative) Urine Urobilinogen < 2.0 (<2.0) mg/dL Ur Leukocyte Esterase Neg (Negative) Urine WBC (Auto) 1.0 (0.0-6.0) /HPF Urine RBC (Auto) 1.0 (0.0-6.0) /HPF U Epithel Cells (Auto) 7.0 (0-13.0) /HPF Urine Bacteria (Auto) 1+ (Negative) /HPF Urine Mucus Few /HPF Urine HCG, Qual Negative (Negative) Vital Signs 07/17/19 07:21 Temperature 98.7 F Pulse Rate 88 Respiratory 12 Rate Blood Pressure 154/96 [Right] O2 Sat by Pulse 100 Oximetry ua noted preg neg dc home with dc plan of care and follow up - Differential Diagnosis ro preg/uti Critical care attestation.: If time is entered above; I have spent that time in minutes in the direct care of this critically ill patient, excluding procedure time. ED Disposition Clinical Impression: Nausea, Negative test Disposition: DC-01 TO HOME OR SELFCARE Is pt being admited?: No Does the pt Need Aspirin: No Condition: Stable Instructions: Acute Nausea and Vomiting (ED) Additional Instructions: hydrate well zofran for nausea follow up with pcp referral below Prescriptions: Ondansetron [Zofran Odt] 4 mg PO Q8HR PRN #10 tab.rapdis PRN Reason: Vomiting Referrals: STEPHEN JIMENEZ MD [Staff Physician] - 3-5 Days Forms: Work/School Release Form(ED) Time of Disposition: 08:53
[2019-07-17 08:34] LABS: Basophils % (Auto) 0.6 % (0.0-1.8); Eosinophils % (Auto) 0.7 % (0.0-4.3); Hematocrit 35.6 % (30.3-42.9); Hemoglobin 11.5 gm/dl (10.1-14.3); Lymphocytes # (Auto) 1.8 K/mm3 (1.2-5.4); Lymphocytes % (Auto) 29.4 % (13.4-35.0); Mean Corpuscular HGB Conc 32 % (30-34); Mean Corpuscular Volume 82 fl (79-97); Monocytes # (Auto) 0.4 K/mm3 (0.0-0.8); Monocytes % (Auto) 6.7 % (0.0-7.3); Platelet Count 361 K/mm3 (140-440); Red Blood Count 4.34 M/mm3 (3.65-5.03); Red Cell Distribution Width 18.9 % (13.2-15.2)
[2019-07-17 08:42] LABS: Bacteria,Urine 1+ /HPF (Negative); Bilirubin,Urine NEG (Negative); Blood,Urine NEG (Negative); Color,Urine Yellow (Yellow); Mucus,Urine FEW /HPF; Protein,Urine <15 mg/dL mg/dL (Negative); Urobilinogen,Urine < 2.0 mg/dL (<2.0)
[2019-07-17 08:46] LABS: HCG Qualitative,Urine Negative (Negative)
[2019-07-17 08:48] LABS: Alanine Aminotransferase 13 units/L (7-56); Albumin 3.9 g/dL (3.9-5); BUN/Creatinine Ratio 11; Blood Urea Nitrogen 8 mg/dL (7-17); Calcium 8.6 mg/dL (8.4-10.2); Hemolysis Index 3
== END 2019-07-17 09:02 | disposition home or self-care (01) ==
LOC: ED 07:03
DX: J45.909 Unspecified asthma, uncomplicated (principal); Z98.890 Other specified postprocedural states; Z79.899 Other long term (current) drug therapy
CPT/HCPCS: 36415; 80053; 81001; 81025; 83690; 85025; 99283

== ENCOUNTER 2020-03-07 15:00 | Emergency (ER) | payer MEDICAID, OTHER ==
[2020-03-07 15:37] LABS: Basophils % (Auto) 0.6 % (0.0-1.8); Eosinophils % (Auto) 0.4 % (0.0-4.3); Hematocrit 33.3 % (30.3-42.9); Lymphocytes # (Auto) 1.9 K/mm3 (1.2-5.4); Lymphocytes % (Auto) 25.1 % (13.4-35.0); Mean Corpuscular HGB Conc 33 % (30-34); Mean Corpuscular Volume 85 fl (79-97); Monocytes # (Auto) 0.6 K/mm3 (0.0-0.8); Monocytes % (Auto) 7.7 % (0.0-7.3); Platelet Count 306 K/mm3 (140-440); Red Blood Count 3.93 M/mm3 (3.65-5.03); Red Cell Distribution Width 17.3 % (13.2-15.2)
[2020-03-07 16:23] LABS: Alanine Aminotransferase 10 units/L (7-56); BUN/Creatinine Ratio 11; Blood Urea Nitrogen 8 mg/dL (7-17); Calcium 9.1 mg/dL (8.4-10.2); Hemolysis Index 3
[2020-03-07 18:25] LABS: Bacteria,Urine 1+ /HPF (Negative); Bilirubin,Urine NEG (Negative); Blood,Urine LG (Negative); Color,Urine Yellow (Yellow); Mucus,Urine FEW /HPF; Protein,Urine <15 mg/dL mg/dL (Negative); Urobilinogen,Urine < 2.0 mg/dL (<2.0)
[2020-03-07 18:28] LABS: RBC,Urine > 182.0 /HPF (0.0-6.0)
--- NOTE | 2020-03-07 18:30 | Emergency Department Report ---
ED HPI - General Chief complaint: Vaginal Bleeding Stated complaint: 6WKS MISCARRIAGE Time Seen by Provider: 03/07/20 16:36 Source: patient Mode of arrival: Ambulatory Limitations: No Limitations - History of Present Illness Initial comments: 29-year-old female, A2, presents to ED with vaginal bleeding. Patient reports she is 6 weeks . Today she experienced heavy vaginal bleeding with clots. Patient reports minimal cramping. Patient states cramping and bleeding have mostly resolved at this point in time. Patient reports she has had 2 miscarriages in the past. Patient is scheduled to have an ultrasound with her OB in 3 days. OB: [facility] MD Complaint: vaginal bleeding -: This afternoon Location: pelvis Severity: moderate Quality: cramping Consistency: now resolved Improves with: none Worsens with: none Associated symptoms: vaginal discharge, abdominal pain Vaginal bleeding: heavy, clots :: Yes Number of weeks : 6 OB History - Previous Pregnancies: miscarriage Pre- care: followed by OB - Related Data : 3 Para: 0 Ab: 2 Previous Rx's Medication Instructions Recorded Last Taken Type Ondansetron [Zofran Odt] 4 mg PO Q8HR PRN #10 tab.rapdis 07/17/19 Unknown Rx Allergies Allergy/AdvReac Type Severity Reaction Status Date / Time No Known Allergies Allergy Verified 01/05/16 03:09 ED Review of Systems ROS: Stated complaint: 6WKS MISCARRIAGE Other details as noted in HPI Comment: All other systems reviewed and negative Gastrointestinal: abdominal pain Genitourinary: other (Reports vaginal bleeding) ED Past Medical Hx - Past Medical History Previous Medical History?: Yes Hx Hypertension: No Hx Asthma: Yes Additional medical history: Miscarriage x 2 - Surgical History Past Surgical History?: Yes Additional Surgical History: uterine polyps - Social History Smoking Status: Never Smoker Substance Use Type: None - Medications Home Medications: Home Medications Medication Instructions Recorded Confirmed Last Taken Type Ondansetron [Zofran Odt] 4 mg PO Q8HR PRN #10 tab.rapdis 07/17/19 Unknown Rx ED Physical Exam - General Limitations: No Limitations General appearance: alert, in no apparent distress - Head Head exam: Present: atraumatic, normocephalic - Eye Eye exam: Present: normal appearance, EOMI - ENT ENT exam: Present: mucous membranes moist - Neck Neck exam: Present: normal inspection - Respiratory Respiratory exam: Present: normal lung sounds bilaterally. Absent: respiratory distress - Cardiovascular Cardiovascular Exam: Present: regular rate, normal rhythm - GI/Abdominal GI/Abdominal exam: Present: soft. Absent: distended, tenderness - Extremities Exam Extremities exam: Present: normal inspection - Neurological Exam Neurological exam: Present: alert, oriented X3 - Psychiatric Psychiatric exam: Present: normal affect, normal mood - Skin Skin exam: Present: warm, dry, intact, normal color. Absent: rash ED Course Vital Signs 03/07/20 03/07/20 03/07/20 15:07 18:42 20:00 Temperature 98.5 F Pulse Rate 90 92 H 91 H Respiratory 20 16 20 Rate Blood Pressure 123/69 Blood Pressure 140/72 136/91 [Right] O2 Sat by Pulse 100 100 98 Oximetry 03/07/20 21:34 Temperature Pulse Rate 90 Respiratory 20 Rate Blood Pressure Blood Pressure 115/60 [Right] O2 Sat by Pulse 99 Oximetry - Consultations Consultation #1: 03/07/20 20:10 Spoke w/ Dr Rika Brumfield, relayed US findings. Pt advised to f/u in office as scheduled. ED Medical Decision Making - Lab Data Result diagrams: 03/07/20 15:19 03/07/20 15:55 - Radiology Data Radiology results: report reviewed, image reviewed - Medical Decision Making 29 yo F s/p vag bleeding and cramping, now resolved. Vitals stable. Hb norm al. Hcg level of 37,800. US shows gestational sac only, ovaries not visualized. Spoke w/ pt's OB regarding workup. Pt is scheduled to have an US this upcoming week. Pt advised to keep her appt and they will see her in the office. Return precautions given. - Differential Diagnosis ectopic, threatened AB, spontaneous AB Critical care attestation.: If time is entered above; I have spent that time in minutes in the direct care of this critically ill patient, excluding procedure time. ED Disposition Clinical Impression: Threatened miscarriage Disposition: - TO HOME OR SELFCARE Is pt being admited?: No Condition: Stable Instructions: Threatened Miscarriage (ED) [facility] [Provider Group] - 3-5 Days Time of Disposition: 20:15
--- NOTE | 2020-03-07 19:47 | Ultrasound Report ---
ULTRASOUND OBSTETRIC INDICATION / CLINICAL INFORMATION: , bleeding. Clinical Gestational Age (GA): 6 weeks 0 days TECHNIQUE: Transabdominal and Transvaginal. COMPARISON: Pelvic ultrasound from 01/05/2016 FINDINGS: GESTATIONAL SAC: Well-defined oval shape and intrauterine in location. YOLK SAC: Not identified EMBRYO/FETUS: Not identified ADNEXA: Negative ovary was visualized. FREE FLUID: None. ADDITIONAL FINDINGS: None. IMPRESSION: Anechoic cystic structure in the endometrial cavity is compatible with a gestational sac measuring ab out 2.2 cm in greatest dimension, but no yolk sac or embryo is visualized at this time. This may be d ue to early stage of . Continued clinical follow-up is recommended with serial measurement o f beta-hCG and repeat ultrasound as needed. Nonvisualization of the ovaries. Signer Name: Jalil Call MD Signed: 03/07/2020 7:42 PM Workstation Name: [id number]
[2020-03-07 21:45] VITALS: BP 115/60
== END 2020-03-07 21:48 | disposition home or self-care (01) ==
LOC: ED 15:00
DX: O20.0 Threatened abortion (principal); J45.909 Unspecified asthma, uncomplicated; Z3A.01 Less than 8 weeks gestation of pregnancy; Z98.890 Other specified postprocedural states; Z79.899 Other long term (current) drug therapy
CPT/HCPCS: 36415; 76801; 76802; 76817; 80053; 81001; 84702; 85025; 86900; 86901

== ENCOUNTER 2020-10-30 23:28 | Observation (INO) | payer MEDICAID ==
[2020-10-30] MEDS ORDERED: MORPHINE 4 MG/1 ML INJ IV ONE (23:48)
[2020-10-30] MEDS ORDERED: ONDANSETRON 4 MG/2 ML INJ IV ONE (23:48)
[2020-10-30] MEDS ORDERED: SODIUM CHLORIDE 0.9% 1000 ML 1,000 ML IV ONE (23:48)
[2020-10-31 00:34] LABS: Basophils % (Auto) 0.5 % (0.0-1.8); Eosinophils # (Auto) 0.1 K/mm3 (0.0-0.4); Eosinophils % (Auto) 0.7 % (0.0-4.3); Hematocrit 33.7 % (30.3-42.9); Hemoglobin 11.3 gm/dl (10.1-14.3); Lymphocytes # (Auto) 2.3 K/mm3 (1.2-5.4); Lymphocytes % (Auto) 28.8 % (13.4-35.0); Mean Corpuscular HGB Conc 33 % (30-34); Mean Corpuscular Volume 88 fl (79-97); Monocytes # (Auto) 0.6 K/mm3 (0.0-0.8); Monocytes % (Auto) 7.1 % (0.0-7.3); Platelet Count 292 K/mm3 (140-440); Red Blood Count 3.86 M/mm3 (3.65-5.03)
[2020-10-31 00:42] LABS: Alanine Aminotransferase 10 units/L (7-56); Albumin 3.9 g/dL (3.9-5); Blood Urea Nitrogen 9 mg/dL (7-17); Calcium 8.6 mg/dL (8.4-10.2); Hemolysis Index 2
[2020-10-31 00:46] LABS: BUN/Creatinine Ratio 13
--- NOTE | 2020-10-31 01:14 | Emergency Department Report ---
ED HPI - General Chief complaint: Vaginal Bleeding Stated complaint: 11WEEKS BLEEDING Time Seen by Provider: 10/31/20 00:35 Source: patient Mode of arrival: Wheelchair Limitations: No Limitations - History of Present Illness Initial comments: Patient is a 30-year-old female that presents emergency room with complaints of vaginal bleeding and abdominal cramping. Patient states that she is 11 weeks . Patient states she is being followed by an SALES SERVICE ASSISTANT, [facility]. Patient's OB is Dr. Issa. Patient states that she has been spotting her entire however today she began bleeding heavily. Patient states that earlier this week she had an ultrasound and it showed a pole with no heart beat and her SALES SERVICE ASSISTANT planned a D&C on next Sunday. Patient states that the bleeding so heavy that she had a syncopal episode. Patient states that the heavy bleeding started at 7 AM. Patient denies fever and chills. Patient denies chest pain or shortness of breath. Patient states she is tired and weak. Patient states that her abdominal cramps are a 7 out of 10. Patient states the are intermittent. Patient states her last menstrual period was 08/10/2020. Patient states she is a A3. Patient states all of her pregnancies have ended in miscarriage. Patient states she is up-to-date on her vaccinations. Patient denies recent travel. Patient denies recent international travel. Patient denies exposure to the novel coronavirus. Patient denies sick contacts. Patient denies fever and chills. Patient denies cough. Patient denies diarrhea. Patient denies coming in contact with anybody with symptoms of the novel coronavirus. MD Complaint: abdominal pain, vaginal bleeding -: Sudden Location: pelvis, abdomen Severity: severe Severity scale (0 -10): 7 Quality: cramping Consistency: intermittent Improves with: rest Worsens with: movement Associated symptoms: vaginal bleeding, abdominal pain, malaise, syncope, weakness. denies: nausea/vomiting, vaginal discharge, dysuria, headache, vision changes, dysparuenia, rash, seizure, shortness of breath Vaginal bleeding: heavy, clots :: Yes Number of weeks : 11 OB History - Previous Pregnancies: miscarriage Pre- care: followed by OB - Related Data Previous Rx's Medication Instructions Recorded Last Taken Type Ondansetron [Zofran Odt] 4 mg PO Q8HR PRN #10 tab.rapdis 07/17/19 Unknown Rx Nitrofurantoin Rabun/M-Cryst 100 mg PO Q12HR #20 capsule 05/09/20 Unknown Rx [Macrobid CAP] Allergies Allergy/AdvReac Type Severity Reaction Status Date / Time No Known Allergies Allergy Verified 05/09/20 16:02 ED Review of Systems ROS: Stated complaint: 11WEEKS BLEEDING Other details as noted in HPI Constitutional: malaise, weakness. denies: chills, fever Eyes: denies: eye pain, eye discharge, vision change ENT: denies: ear pain, throat pain Respiratory: denies: cough, shortness of breath, wheezing Cardiovascular: denies: chest pain, palpitations Endocrine: no symptoms reported Gastrointestinal: abdominal pain. denies: nausea, diarrhea Genitourinary: denies: urgency, dysuria, discharge Musculoskeletal: denies: back pain, joint swelling, arthralgia Skin: denies: rash, lesions Neurological: denies: headache, paresthesias Psychiatric: denies: anxiety, depression Hematological/Lymphatic: denies: easy bleeding, easy bruising ED Past Medical Hx - Past Medical History Previous Medical History?: Yes Hx Hypertension: No Hx Asthma: Yes Additional medical history: Miscarriage x 2 - Surgical History Past Surgical History?: Yes Additional Surgical History: uterine polyps - Family History Family history: no significant - Social History Smoking Status: Never Smoker Substance Use Type: None - Medications Home Medications: Home Medications Medication Instructions Recorded Confirmed Last Taken Type Ondansetron [Zofran Odt] 4 mg PO Q8HR PRN #10 tab.rapdis 07/17/19 Unknown Rx Nitrofurantoin Rabun/M-Cryst 100 mg PO Q12HR #20 capsule 05/09/20 Unknown Rx [Macrobid CAP] ED Physical Exam - General Limitations: No Limitations General appearance: alert, in no apparent distress - Head Head exam: Present: atraumatic, normocephalic - Eye Eye exam: Present: normal appearance - ENT ENT exam: Present: mucous membranes moist - Neck Neck exam: Present: normal inspection - Respiratory Respiratory exam: Present: normal lung sounds bilaterally. Absent: respiratory distress, wheezes, rales - Cardiovascular Cardiovascular Exam: Present: regular rate, normal rhythm. Absent: systolic murmur, diastolic murmur, rubs, gallop - GI/Abdominal GI/Abdominal exam: Present: soft, tenderness (Suprapubic tenderness), normal bowel sounds - Extremities Exam Extremities exam: Present: normal inspection - Back Exam Back exam: Present: normal inspection - Neurological Exam Neurological exam: Present: alert, oriented X3 - Psychiatric Psychiatric exam: Present: normal affect, normal mood - Skin Skin exam: Present: warm, dry, intact, normal color. Absent: rash ED Course Vital Signs 10/30/20 10/31/20 10/31/20 23:39 01:08 01:15 Temperature 98.1 F Pulse Rate 95 H 70 Respiratory 18 18 Rate Blood Pressure 141/69 130/65 Blood Pressure [Left] O2 Sat by Pulse 100 98 Oximetry 10/31/20 10/31/20 10/31/20 01:16 01:30 01:38 Temperature 97.8 F Pulse Rate 65 74 Respiratory 16 20 18 Rate Blood Pressure 142/74 Blood Pressure 120/65 [Left] O2 Sat by Pulse 99 100 Oximetry 10/31/20 10/31/20 10/31/20 01:45 02:10 02:15 Temperature Pulse Rate 75 103 H 81 Respiratory 19 16 15 Rate Blood Pressure 142/78 142/78 141/72 Blood Pressure [Left] O2 Sat by Pulse 100 100 100 Oximetry 10/31/20 02:30 Temperature Pulse Rate 78 Respiratory 19 Rate Blood Pressure 131/75 Blood Pressure [Left] O2 Sat by Pulse 100 Oximetry - Reevaluation(s) Reevaluation #1: I discussed all results with patient. I discussed plan of care with patient. Patient agrees with plan of care and admission. Patient to be admitted to the SALES SERVICE ASSISTANT service. 10/31/20 01:56 - Consultations Consultation #1: Patient's SALES SERVICE ASSISTANT team paged. 10/31/20 01:33 I discussed the case with VASCULAR SURGEON, Dr. Saint Saavedra. Dr. Saint Saavedra wants the patient admitted to mother-baby and she will see the patient in the morning. 10/31/20 01:51 ED Medical Decision Making - Lab Data Result diagrams: 10/30/20 23:57 10/30/20 23:57 - Radiology Data Radiology results: report reviewed EARLY OBSTETRICAL ULTRASOUND INDICATION: Pelvic pain; vaginal bleeding COMPARISON: None pertinent available TECHNIQUE: Transabdominal and endovaginal FINDINGS: Uterus measures 14.5 cm in length. An elongated intrauterine gestational sac is seen. pole is well visualized with estimated gestational age of 8 weeks 1 day. No heart tones could be documented however. No yolk sac is seen. Ovaries are not visualized. No adnexal masses are noted. There may be a trace of free fluid. IMPRESSION: Early demise - Medical Decision Making Patient is a 30-year-old female that presents emergency room with complaints of. Patient states she lives most of her however bleeding increased and she had a syncopal episode. Patient which were essentially unremarkable. hCG is low for gestational age. Patient given fluids in the ER. Patient had an ultrasound done and it showed pole with no heart rate. I discussed the case with the patient's SALES SERVICE ASSISTANT and he SALES SERVICE ASSISTANT wants the patient admitted. Patient admitted to mother-baby. - Differential Diagnosis Miscarriage, vaginal bleeding, abdominal pain, Critical Care Time: Yes Critical care time in (mins) excluding proc time.: 35 Critical care attestation.: If time is entered above; I have spent that time in minutes in the direct care of this critically ill patient, excluding procedure time. Critical Care Time: 35 minutes ED Disposition Clinical Impression: Vaginal bleeding, Spontaneous miscarriage, demise before 20 weeks with retention of fetus Syncope Qualifiers: Syncope type: unspecified Qualified Code(s): R55 - Syncope and collapse Qualifiers: Weeks of gestation: 11 weeks Qualified Code(s): Z3A.11 - 11 weeks gestation of Disposition: OP ADMIT IP TO THIS HOSP Is pt being admited?: Yes Does the pt Need Aspirin: No Condition: Critical Time of Disposition: 01:59
--- NOTE | 2020-10-31 01:20 | Ultrasound Report ---
EARLY OBSTETRICAL ULTRASOUND INDICATION: Pelvic pain; vaginal bleeding COMPARISON: None pertinent available TECHNIQUE: Transabdominal and endovaginal FINDINGS: Uterus measures 14.5 cm in length. An elongated intrauterine gestational sac is seen. pole is well visualized with estimated gestational age of 8 weeks 1 day. No heart tones could be documented however. No yolk sac is seen. Ovaries are not visualized. No adnexal masses are noted. There may be a trace of free fluid. IMPRESSION: Early demise Signer Name: Bang Echevarria MD Signed: 10/31/2020 1:15 AM Workstation Name: [id number]
[2020-10-31] MEDS ORDERED: SODIUM CHLORIDE 0.9% 1000 ML 1,000 ML IV ONE (01:56)
[2020-10-31 02:44] LABS: Bacteria,Urine 1+ /HPF (Negative); Bilirubin,Urine NEG (Negative); Blood,Urine LG (Negative); Color,Urine Red (Yellow); Urobilinogen,Urine < 2.0 mg/dL (<2.0)
[2020-10-31 02:51] LABS: RBC,Urine > 182.0 /HPF (0.0-6.0)
[2020-10-31] MEDS ORDERED: oxyCODONE /ACETAMINOPHEN 5-325MG TAB PO PRN (04:00)
[2020-10-31] MEDS ORDERED: D5W/LACTATED RINGERS 1,000 ML IV SCH (04:00)
[2020-10-31] MEDS ORDERED: IBUPROFEN 800 MG TAB PO PRN (04:07)
[2020-10-31] MEDS: MORPHINE 2 MG/1 ML INJ IV PRN ×2 (04:46→08:14)
--- NOTE | 2020-10-31 10:26 | Short Stay Summary ---
Short Stay Documentation Date of service: 10/31/20 Narrative H&P: 30y/o in her first trimester presents with a missed at approximately 9 weeks ega. The patient presented to the ED with the complaint of bleeding and pain. She denies any precipitating event for her symptoms. Pelvic ultrasound demonstrated a non-viable intrauterine . - History Principal diagnosis: Missed Past Medical History: No medical history Past Surgical History: Other (D&C) Social history: - Allergies and Medications Current Medications: Allergies No Known Allergies Allergy (Verified 05/09/20 16:02) Home Medications Medication Instructions Recorded Confirmed Last Taken Type Ondansetron [Zofran Odt] 4 mg PO Q8HR PRN #10 tab.rapdis 07/17/19 Unknown Rx Nitrofurantoin [place]/M-Cryst 100 mg PO Q12HR #20 capsule 05/09/20 Unknown Rx [Macrobid CAP] Active Medications Dextrose/Lactated Ringer's (D5lr) 1,000 mls @ 125 mls/hr IV DIRECT KACEY Last Admin: 10/31/20 04:27 Dose: 125 mls/hr Documented by: Ibuprofen (Ibuprofen 800 Mg Tab) 800 mg PO Q6HR PRN PRN Reason: Pain, Mild (1-3) Morphine Sulfate (Morphine 2 Mg/1 Ml Inj) 2 mg IV Q2HR PRN PRN Reason: Pain , Severe (7-10) Last Admin: 10/31/20 08:14 Dose: 2 mg Documented by: Oxycodone/Acetaminophen (Oxycodone /Acetaminophen 5-325mg Tab) 1 tab PO Q6H PRN PRN Reason: Pain, Moderate (4-6) - Physical exam General appearance: mild distress Integumentary: no rash HEENT: Atraumatic Lungs: Clear to auscultation Breasts: deferred Heart: Regular rate Gastrointestinal: normal Female Genitourinary: deferred Rectal Exam: deferred - Brief post op/procedure progress note Date of procedure: 10/31/20 Pre-op diagnosis: Missed Post-op diagnosis: same Procedure: Suction dilatation and curettage Anesthesia: JOEL Surgeon: CHANDAN OLIVER Estimated blood loss: 50-100ml Pathology: list (Retained products of conception) Specimen disposition: to lab Condition: stable - Hospital course Hospital course: The patient was admitted through the emergency department secondary to the complaint of vaginal bleeding and pain. The patient has a known history of a mi ssed . She denied any passage of tissue at the time of presentation. The patient was admitted to undergo a suction dilatation and curettage. See operative note for details of surgery. Postoperative course was uneventful. - Disposition Condition at discharge: Good Disposition: DC-01 TO HOME OR SELFCARE - Discharge Diagnoses (1) Missed Status: Acute Short Stay Discharge Plan Activity: other (Pelvic rest for 1 week) Diet: regular Additional Instructions: Schedule follow-up at [place] [employer] in 2 weeks Prescriptions: Ibuprofen [Motrin] 800 mg PO Q8HR PRN #30 tablet PRN Reason: Pain , Severe (7-10) HYDROcodone/APAP 5-325 [[place] 5/325] 1 each PO Q6HR PRN #15 tablet PRN Reason: Pain
[2020-10-31] MEDS ORDERED: SILVER NITRATE APPLICATOR 1 EA TP ONE (10:35)
[2020-10-31] MEDS ORDERED: METHYLERGONOVINE MALEATE 0.2 MG/ML VIAL IM ONE ×2 (10:35→11:26)
--- NOTE | 2020-10-31 10:42 | Anesthesia Consultation ---
Anesthesia Consult and Med Hx Date of service: 10/31/20 - Airway Anesthetic Teeth Evaluation: Good ROM Head & Neck: Adequate Mental/Hyoid Distance: Adequate Mallampati Class: Class II Intubation Access Assessment: Good - Pulmonary Exam CTA: Yes - Cardiac Exam Cardiac Exam: RRR - Pre-Operative Health Status ASA Pre-Surgery Classification: ASA2, Emergency Proposed Anesthetic Plan: General - Pulmonary Hx Asthma: Yes - Cardiovascular System Hx Hypertension: No - Other Systems Hx Obesity: Yes
--- NOTE | 2020-10-31 10:42 | Anesthesia Day of Surgery ---
Anesthesia Day of Surgery - Day of Surgery Patient Examined: Yes Patient H&P Reviewed: Yes Patient is NPO: Yes
[2020-10-31] MEDS ORDERED: propofoL 200 MG/20 ML VIAL IV ONE (10:46)
[2020-10-31] MEDS ORDERED: MIDAZOLAM 2 MG/2 ML INJ ONE (10:46)
[2020-10-31] MEDS ORDERED: LIDOCAINE MPF (2%) 20 MG/1 ML VIAL 5 ML ONE (11:00)
[2020-10-31] MEDS ORDERED: KETOROLAC 30 MG/1 ML INJ ONE (11:06)
[2020-10-31] MEDS ORDERED: ALBUTEROL 8.5 GM MDI INHALATION IH ONE (11:06)
[2020-10-31] MEDS ORDERED: ONDANSETRON 4 MG/2 ML INJ ONE (11:06)
[2020-10-31] MEDS ORDERED: dexAMETHasone 20 MG/5 ML VIAL ONE (11:06)
--- NOTE | 2020-10-31 11:16 | Operative Report ---
Operative Report Operative Report: Date of surgery: October 31, 2020 Preoperative diagnosis: Missed Postoperative diagnosis: Same as above Procedure: Suction dilatation and curettage Surgeon: Samanta Bustamante M.D. Anesthesia: Gen. endotracheal anesthesia Estimated blood loss: 100 mL Findings: Retained products of conception Indication: 30-year-old -0-3-0 at approximately 8 weeks estimated gestational age with findings of a missed and vaginal bleeding. Procedure: The patient was taken to the operating room and given general endotracheal anesthesia without complication. The patient is prepped and draped in a normal sterile fashion. A bivalve speculum was placed in the patient's vagina and a single-tooth tenaculum placed on the anterior lip of the cervix. The uterine cavity was then sounded. The cervical os was then dilated with graduated dilators. A number 9 [place] Citizen curved cannula was placed to suction and found to be adequate. The cannula was then gently inserted into the dilated cervical os. Evacuation of the uterine contents were performed. Sharp curettage and endometrial surface was performed until cry was achieved. The cannula was then gently reinserted into the uterine cavity to evacuate any additional contents. After removal of the cannula there was no evidence of any active bleeding. The vaginal instruments were then removed atraumatically. The patient was then successfully extubated and taken to the recovery room in stable condition. All sponge laps and needle counts were correct x2. Pathology consisted of products of conception.
[2020-10-31] MEDS ORDERED: SODIUM CHLORIDE 0.9% IRR 1,500 ML BOTTLE IR ONE (11:27)
[2020-10-31] MEDS ORDERED: HYDROmorphone 1 MG/1 ML INJ ONE (11:30)
[2020-10-31] MEDS: HYDROmorphone 1 MG/1 ML INJ IV PRN ×2 (11:33→11:43)
[2020-10-31] MEDS ORDERED: ONDANSETRON 4 MG/2 ML INJ IV PRN (11:35)
[2020-10-31] MEDS ORDERED: SODIUM CHLORIDE 0.9% 1000 ML 1,000 ML ONE (11:50)
--- NOTE | 2020-10-31 11:59 | Post Anesthesia Evaluation ---
- Post Anesthesia Evaluation Patient Participated: Yes Airway Patent: Yes Stable Respiratory Function: Yes Nausea/Vomiting: No Temp > 96.8F: Yes Pain Manageable: Yes Adequeate Hydration: Yes Anesthesia Complications: No Block Receding Appropriately: Not Applicable Patient on Ventilator: No
[2020-10-31 15:31] VITALS: BP 128/78
== END 2020-10-31 15:15 | disposition home or self-care (01) ==
LOC: ED 23:28 → OB 10-31 01:57
PROVIDERS: ADMIT Obstetrics & Gynecology; ATTEND Obstetrics & Gynecology
PROC: [UNRECOGNIZED PROCEDURE] (principal; 2020-10-31)
DX: O03.9 Complete or unspecified spontaneous abortion without complication (principal); O02.89 Other abnormal products of conception; N93.9 Abnormal uterine and vaginal bleeding, unspecified; J45.909 Unspecified asthma, uncomplicated; Z3A.11 11 weeks gestation of pregnancy
CPT/HCPCS: 36415; 59820; 76801; 76817; 80053; 81001; 84702; 85025; 86850; 86900; 86901; 87086; 88305; 96361; 96374; 96375; 96376; 99291; G0378; J1100; J1170; J1885; J2210; J2250; J2270; J2405; J2704; J7030; J7121

== ENCOUNTER 2021-05-14 15:50 | Emergency (ER) | payer MEDICAID | END 2021-05-14 15:55 | disposition left against medical advice (07) | LOC: ED 15:50 | DX: J45.909 Unspecified asthma, uncomplicated (principal); Z53.21 Procedure and treatment not carried out due to patient leaving prior to being seen by health care provider ==

== ENCOUNTER 2021-05-17 18:14 | Emergency (ER) | payer MEDICAID ==
[2021-05-17 18:52] VITALS: BP 123/72
[2021-05-17 19:33] LABS: Basophils % (Auto) 0.2 % (0.0-1.8); Hematocrit 35.7 % (30.3-42.9); Hemoglobin 12.1 gm/dl (10.1-14.3); Lymphocytes # (Auto) 0.7 K/mm3 (1.2-5.4); Mean Corpuscular HGB Conc 34 % (30-34); Mean Corpuscular Volume 87 fl (79-97); Monocytes # (Auto) 0.2 K/mm3 (0.0-0.8); Monocytes % (Auto) 5.5 % (0.0-7.3); Platelet Count 241 K/mm3 (140-440); Red Blood Count 4.09 M/mm3 (3.65-5.03); Red Cell Distribution Width 16.2 % (13.2-15.2)
[2021-05-17 19:51] LABS: Alanine Aminotransferase 15 units/L (7-56); Albumin 3.6 g/dL (3.9-5); BUN/Creatinine Ratio 14; Blood Urea Nitrogen 11 mg/dL (7-17); Calcium 8.5 mg/dL (8.4-10.2); Hemolysis Index 31
--- NOTE | 2021-05-17 20:18 | Emergency Department Report ---
- General Chief Complaint: Dyspnea/Respdistress Stated Complaint: CHEST PAINS/DIFF BREATHING Time Seen by Provider: 05/17/21 18:57 Source: patient Mode of arrival: Ambulatory Limitations: No Limitations - History of Present Illness Initial Comments: Patient is a 31-year-old female presents emergency room with complaints of URI symptoms that began 2 weeks ago. Patient states that she traveled to [place] on 04/29/2021. She states that she had a COVID-19 test approximately 2 weeks ago and reports it was normal. She has associated cough with yellow mucus production, subjective fever, chills, generalized body aches, diarrhea, shortness of breath. She has chest pain after coughing. She denies any vomiting, abdominal pain, urinary symptoms, leg swelling. Past medical history of asthma. No allergies to medications. - Related Data Previous Rx's Medication Instructions Recorded Last Taken Type Ondansetron [Zofran Odt] 4 mg PO Q8HR PRN #10 tab.rapdis 07/17/19 Unknown Rx Nitrofurantoin [place]/M-Cryst 100 mg PO Q12HR #20 capsule 05/09/20 Unknown Rx [Macrobid CAP] HYDROcodone/APAP 5-325 [[place] 1 each PO Q6HR PRN #15 tablet 10/31/20 Unknown Rx 5/325] Ibuprofen [Motrin] 800 mg PO Q8HR PRN #30 tablet 10/31/20 Unknown Rx Albuterol Sulfate [Proventil Hfa] 1 - 2 puff IH TID PRN #1 hfa.aer.ad 05/17/21 Unknown Rx Azithromycin [Zithromax TAB] 250 mg PO QDAY 5 Days #6 tablet 05/17/21 Unknown Rx Benzonatate [Tessalon Perles] 100 mg PO Q8HR PRN #12 capsule 05/17/21 Unknown Rx guaiFENesin ER [Mucinex ER] 600 mg PO BID #14 tablet.er 05/17/21 Unknown Rx Allergies Allergy/AdvReac Type Severity Reaction Status Date / Time No Known Allergies Allergy Verified 05/09/20 16:02 ED Review of Systems ROS: Stated complaint: CHEST PAINS/DIFF BREATHING Other details as noted in HPI Comment: All other systems reviewed and negative ED Past Medical Hx - Past Medical History Previous Medical History?: Yes Hx Hypertension: No Hx Asthma: Yes Additional medical history: Miscarriage x 2 - Surgical History Past Surgical History?: Yes Additional Surgical History: uterine polyps - Social History Smoking Status: Never Smoker Substance Use Type: None - Medications Home Medications: Home Medications Medication Instructions Recorded Confirmed Last Taken Type Ondansetron [Zofran Odt] 4 mg PO Q8HR PRN #10 tab.rapdis 07/17/19 Unknown Rx Nitrofurantoin [place]/M-Cryst 100 mg PO Q12HR #20 capsule 05/09/20 Unknown Rx [Macrobid CAP] HYDROcodone/APAP 5-325 [[place] 1 each PO Q6HR PRN #15 tablet 10/31/20 Unknown Rx 5/325] Ibuprofen [Motrin] 800 mg PO Q8HR PRN #30 tablet 10/31/20 Unknown Rx Albuterol Sulfate [Proventil Hfa] 1 - 2 puff IH TID PRN #1 hfa.aer.ad 05/17/21 Unknown Rx Azithromycin [Zithromax TAB] 250 mg PO QDAY 5 Days #6 tablet 05/17/21 Unknown Rx Benzonatate [Tessalon Perles] 100 mg PO Q8HR PRN #12 capsule 05/17/21 Unknown Rx guaiFENesin ER [Mucinex ER] 600 mg PO BID #14 tablet.er 05/17/21 Unknown Rx ED Physical Exam - General Limitations: No Limitations General appearance: alert, in no apparent distress - Head Head exam: Present: atraumatic, normocephalic - Eye Eye exam: Present: normal appearance - ENT ENT exam: Present: mucous membranes moist - Respiratory Respiratory exam: Present: normal lung sounds bilaterally. Absent: respiratory distress, wheezes, rales, rhonchi, stridor, chest wall tenderness, accessory muscle use, decreased breath sounds, prolonged expiratory - Cardiovascular Cardiovascular Exam: Present: regular rate, normal rhythm, normal heart sounds. Absent: systolic murmur, diastolic murmur, rubs, gallop - Neurological Exam Neurological exam: Present: alert, oriented X3 - Psychiatric Psychiatric exam: Present: normal affect, normal mood - Skin Skin exam: Present: warm, dry, intact ED Course Vital Signs 05/17/21 05/17/21 18:51 20:42 Temperature 99.1 F Pulse Rate 93 H 98 H Respiratory 20 Rate Blood Pressure 123/72 O2 Sat by Pulse 100 99 Oximetry ED Medical Decision Making - Lab Data Result diagrams: 05/17/21 19:16 05/17/21 19:16 Lab Results 05/17/21 05/17/21 05/17/21 Range/Units 19:16 19:16 19:16 WBC 4.4 L (4.5-11.0) K/mm3 RBC 4.09 (3.65-5.03) M/mm3 Hgb 12.1 (10.1-14.3) gm/dl Hct 35.7 (30.3-42.9) % MCV 87 (79-97) fl MCH 30 (28-32) pg MCHC 34 (30-34) % RDW 16.2 H (13.2-15.2) % Plt Count 241 (140-440) K/mm3 Lymph % (Auto) 17.0 (13.4-35.0) % [place] % (Auto) 5.5 (0.0-7.3) % Eos % (Auto) 0.0 (0.0-4.3) % Baso % (Auto) 0.2 (0.0-1.8) % Lymph # (Auto) 0.7 L (1.2-5.4) K/mm3 [place] # (Auto) 0.2 (0.0-0.8) K/mm3 Eos # (Auto) 0.0 (0.0-0.4) K/mm3 Baso # (Auto) 0.0 (0.0-0.1) K/mm3 Seg Neutrophils % 77.3 H (40.0-70.0) % Seg Neutrophils # 3.4 (1.8-7.7) K/mm3 Sodium 133 L (137-145) mmol/L Potassium 4.0 (3.6-5.0) mmol/L Chloride 95.7 L (98-107) mmol/L Carbon Dioxide 28 (22-30) mmol/L Anion Gap 13 mmol/L BUN 11 (7-17) mg/dL Creatinine 0.8 (0.6-1.2) mg/dL Estimated GFR > 60 ml/min BUN/Creatinine Ratio 14 % Glucose 133 H (65-100) mg/dL Calcium 8.5 (8.4-10.2) mg/dL Total Bilirubin 0.20 (0.1-1.2) mg/dL AST 20 (5-40) units/L ALT 15 (7-56) units/L Alkaline Phosphatase 77 (35-129) units/L Total Protein 6.9 (6.3-8.2) g/dL Albumin 3.6 L (3.9-5) g/dL Albumin/Globulin Ratio 1.1 % HCG, Qual Negative (Negative) - Radiology Data Radiology results: report reviewed Ordering Physician: ARMANDO ALVAREZ Date of Service: 05/17/21 Procedure(s): XR chest routine 2V Accession Number(s): [id number] cc: ARMANDO ALVAREZ Fluoro Time In Minutes: CHEST 2 VIEWS INDICATION: cough, SOB. COMPARISON: 08/27/2018 FINDINGS: SUPPORT DEVICES: None. HEART: Within normal limits. LUNGS/PLEURA: Mild streaky multifocal airspace disease throughout the lungs with no dense consolidation or pleural effusion. No pneumothorax. ADDITIONAL FINDINGS: None. IMPRESSION: 1. Pulmonary findings as above. Signer Name: Sarath Chou MD Signed: 05/17/2021 8:19 PM Workstation Name: [id number] Transcribed By: BRITTNEE Dictated By: Sarath Chou MD Electronically Authenticated By: Sarath Chou MD Signed Date/Time: 05/17/212018 DD/ 17 TD/TT: - Medical Decision Making Patient is a 31-year-old female presents emergency room with complaints of URI symptoms that began 2 weeks ago. Patient states that she traveled to [place] on 04/29/2021. She states that she had a COVID-19 test approximately 2 weeks ago and reports it was normal. She has associated cough with yellow mucus production, subjective fever, chills, generalized body aches, diarrhea, shortness of breath. She has chest pain after coughing. She denies any vomiting, abdominal pain, urinary symptoms, leg swelling. Past medical history of asthma. No allergies to medications. Vitals are normal, no tachycardia, no hypotension, patient is afebrile, no hypoxia. Patient is maintaining sats of 95% or higher on room air. Breath sounds are clear bilaterally, no wheezing, no rales, no rhonchi. Labs are stable. Chest x-ray: SUPPORT DEVICES: None. HEART: Within normal limits. LUNGS/PLEURA: Mild streaky multifocal airspace disease throughout the lungs with no dense consolidation or pleural effusion. No pneumothorax. ADDITIONAL FINDINGS: None. Discussed all results with patient and answer questions. Despite negative COVID-19 test, COVID-19 is still a possibility given the multifocal airspace disease. Patient will be given pr escription for medications. Discussed the importance of outpatient follow-up. Discussed very strict return precautions in detail with patient. Advised patient Please take medication as prescribed. Please increase your fluid intake over the next several days. May take Tylenol as needed for fever or body aches. Follow-up with a primary care doctor for reexamination. Return to emergency room immediately for any new or worsening symptoms including but not limited to difficulty breathing, shortness of breath, severe chest pain, unable to tolerate by mouth intake, etc. Recommend for you to get COVID-19 testing, may have this done at primary care doctor, health department, [facility], etc. recommend for you to get a pulse oximetry meter [id number] and if your oxygen is dropping below 93% please return to the emergency room immediately. - Differential Diagnosis PNA, URI, viral syndrome, COVID-19, bronchitis Critical care attestation.: If time is entered above; I have spent that time in minutes in the direct care of this critically ill patient, excluding procedure time. ED Disposition Clinical Impression: Multifocal lung consolidation, Infection due to COVID-19 virus variant of concern Disposition: DC-01 TO HOME OR SELFCARE Is pt being admited?: No Does the pt Need Aspirin: No Condition: Stable Instructions: COVID-19, Community-Acquired Pneumonia, Adult Additional Instructions: Please take medication as prescribed. Please increase your fluid intake over the next several days. May take Tylenol as needed for fever or body aches. Follow-up with a primary care doctor for reexamination. Return to emergency room immediately for any new or worsening symptoms including but not limited to difficulty breathing, shortness of breath, severe chest pain, unable to tolerate by mouth intake, etc. Recommend for you to get COVID-19 testing, may have this done at primary care doctor, health department, [facility], etc. recommend for you to get a pulse oximetry meter [id number] and if your oxygen is dropping below 93% please return to the emergency room immediately. Prescriptions: guaiFENesin ER [Mucinex ER] 600 mg PO BID #14 tablet.er Albuterol Sulfate [Proventil Hfa] 1 - 2 puff IH TID PRN #1 hfa.aer.ad PRN Reason: shortness of breath/wheezing Benzonatate [Tessalon Perles] 100 mg PO Q8HR PRN #12 capsule PRN Reason: cough Azithromycin [Zithromax TAB] 250 mg PO QDAY 5 Days #6 tablet Referrals: your, primary care doctor [Other] - 2-3 Days Time of Disposition: 20:31 Print Language: SAMI
--- NOTE | 2021-05-17 20:23 | XRay Report ---
CHEST 2 VIEWS INDICATION: cough, SOB. COMPARISON: 08/27/2018 FINDINGS: SUPPORT DEVICES: None. HEART: Within normal limits. LUNGS/PLEURA: Mild streaky multifocal airspace disease throughout the lungs with no dense consolidati on or pleural effusion. No pneumothorax. ADDITIONAL FINDINGS: None. IMPRESSION: 1. Pulmonary findings as above. Signer Name: Sarath Chou MD Signed: 05/17/2021 8:19 PM Workstation Name: [id number]
== END 2021-05-17 21:00 | disposition home or self-care (01) ==
LOC: ED 18:14
DX: R91.8 Other nonspecific abnormal finding of lung field (principal); R06.02 Shortness of breath; R07.9 Chest pain, unspecified; Z20.822 Contact with and (suspected) exposure to COVID-19; J45.909 Unspecified asthma, uncomplicated; Z98.890 Other specified postprocedural states
CPT/HCPCS: 36415; 71046; 80053; 84703; 85025; 99283